=== PATIENT | male | born 1950 | race Caucasian/White ===

== ENCOUNTER → 2017-03-24 | Outpatient (CLI) | payer MEDICARE, BC ==
[~2017-03-24] MED LIST: CATHETER FLUSH 10 ML SYR IV PRN; REGADENOSON 0.4 MG/5 ML SYR (LEXISCAN) IV ONE
[2017-03-24 09:00] VITALS: BP 159/74
[2017-03-24 09:06] VITALS: BP 142/75
[2017-03-24 09:08] VITALS: BP 162/79
[2017-03-24 09:10] VITALS: BP 168/80
--- NOTE | 2017-03-25 06:54 | STRESS TEST ---
DATE OF SERVICE: 03/24/2017 RESTING AND POST REGADENOSON TECHNETIUM 99M TETROFOSMIN SPECT CT IMAGING ORDERING PHYSICIANS: Dr. Ramirez and Dr. Colón. CLINICAL DIAGNOSIS: Chest discomfort. Baseline images were carried out after injection of 10.93 mCi of technetium-99m tetrofosmin. This was followed by 0.4 mg regadenoson and 30.2 mCi of technetium-99m tetrofosmin for stress imaging. The electrocardiogram showed sinus rhythm at baseline and it did not change significantly with the regadenoson infusion. Nonspecific T-wave abnormality was present during the study. He had mild shortness of breath and some chest discomfort with the regadenoson infusion, which resolved in a few minutes after the infusion was completed. Overall, he tolerated the procedure well. Review of images at rest and following stress does not indicate any significant perfusion defects consistent with significant myocardial ischemia or infarction. Gated images show normal global left ventricular systolic function with normal regional wall motion. Left ventricular ejection fraction is calculated to be 69%. Left ventricular end-diastolic volume is 69 mL. TID is absent (0.95). CONCLUSIONS: 1. No evidence of significant myocardial ischemia or infarction on this study. 2. Normal regional wall motion. 3. Normal global left ventricular systolic function with a calculated ejection fraction of 69%. 4. Normal left ventricular cavity size. Job ID: [id number] DocumentID: [id number] Dictated Date: 03/24/2017 11:40:39 Water Purifier Operator Date: 03/24/2017 19:01:28 Dictated By: CONNOR RAMIREZ MD, MA, FACP, FACC,
== END ==
LOC: CARD 07:48
PROVIDERS: ATTEND Internal Medicine Cardiovascular Disease
DX: E78.4 Other hyperlipidemia (principal); E66.09 Other obesity due to excess calories; R07.89 Other chest pain; Z82.49 Family history of ischemic heart disease and other diseases of the circulatory system
CPT/HCPCS: 78452; 93017

== ENCOUNTER → 2017-03-30 | Outpatient (CLI) | payer MEDICARE, BC | LOC: CARD 08:48 → EDUNIT# 09:00 | PROVIDERS: ATTEND Internal Medicine Cardiovascular Disease | DX: R07.89 Other chest pain (principal); E78.4 Other hyperlipidemia; E66.09 Other obesity due to excess calories; Z82.49 Family history of ischemic heart disease and other diseases of the circulatory system | CPT/HCPCS: 93306 ==

== ENCOUNTER → 2021-05-01 | Outpatient (CLI) | payer BC, MEDICARE | LOC: CARD 15:00 | PROVIDERS: ATTEND Nurse Practitioner Family | DX: I34.0 Nonrheumatic mitral (valve) insufficiency (principal) | CPT/HCPCS: 93306 ==

== ENCOUNTER → 2021-05-05 | Outpatient (CLI) | payer MEDICARE, OTHER ==
[~2021-05-05] VITALS: Ht 177 cm; Wt 100.0 kg
[2021-05-05 09:28] VITALS: BP 181/77
--- NOTE | 2021-05-05 17:26 | STRESS TEST ---
DATE OF SERVICE: 05/05/2021 RESTING AND POST REGADENOSON TECHNETIUM-99M TETROFOSMIN SPECT CT IMAGING ORDERING PHYSICIAN: Katiuska Dela Cruz APRN PRIMARY PHYSICIAN: Dr. Colón. CLINICAL DIAGNOSIS: Shortness of breath. Baseline images were carried out after injection of 11 mCi of technetium-99m Tetrofosmin. This was followed by 0.4 mg regadenoson and 31.2 mCi of technetium-99m Tetrofosmin for stress imaging. The electrocardiogram showed sinus rhythm at baseline. Sinus arrhythmia and premature atrial contractions were seen. The electrocardiogram did not change significantly with the regadenoson infusion. Review of images at rest and following stress does not indicate any distinct perfusion defects consistent with significant myocardial ischemia or infarction. Gated images show normal global left ventricular systolic function, normal regional wall motion. Left ventricular ejection fraction is calculated to be 60%. Left ventricular end diastolic volume is 90 mL. TID is absent (1.13). CONCLUSIONS: 1. No evidence of any significant myocardial ischemia or infarction on this study. 2. Normal regional wall motion. 3. Normal global left ventricular systolic function with a calculated ejection fraction of 60%. Job ID: [id number] DocumentID: [id number] Dictated Date: 05/05/2021 16:05:53 Hull Drafter Date: 05/05/2021 17:24:06 Dictated By: CONNOR TOWNSEND MD, MA, FACP, FACC,
== END ==
LOC: CARD 07:26
PROVIDERS: ATTEND Nurse Practitioner Family
DX: R06.02 Shortness of breath (principal)
CPT/HCPCS: 78452; 93017; A9502